=== PATIENT | male | born 1950 | race African-American/Black ===

== ENCOUNTER → 2016-10-25 | Outpatient (CLI) | payer MEDICARE ==
[~2016-10-25] MED LIST: ALBU18HF INH; ASPI-496 PO; CARV-39 PO; COLC0.6T37 PO; EPLE25TA4 PO; FLUT1DIS3 INH; FURO20TA3 PO; ISOS10TA2 PO; LISI-170 PO; LOVA40TA2 PO; METO10TA2 PO; REGADENOSON 0.4 MG/5 ML SYRINGE ONE
== END | disposition home or self-care (01) ==
LOC: CFH 08:28
PROVIDERS: ATTEND Internal Medicine Cardiovascular Disease
DX: I25.10 Atherosclerotic heart disease of native coronary artery without angina pectoris (principal)
CPT/HCPCS: 78452; 93017; A9502; J2785